=== PATIENT | male | born 1945 | race Caucasian/White ===

== ENCOUNTER 2017-12-29 10:51 | Emergency (ER) | payer MEDICARE, BC ==
[2017-12-29 11:19] VITALS: BP 116/74
--- NOTE | 2017-12-29 11:36 | UC ---
Skin Complaint HPI - HPI Summary HPI Summary: Patient is year 72 old gentleman ,who present today with a rash for past 6 days. He noticed area of redness in the right upper medial thigh on right saturday , 6 days ago. Has been running low grade fever over the week. He measured a temp of 100F at home once. Afebrile in clinic today . Today he noticed that the rash has spread to his abdominal and and chest and also down his bilateral lower extremities. Rashes in patches . Denies pain or itching. Has been in [place] daily - walk the dogs but doesn't remember being bit. No drainage. No sick contacts . Denies any new soap, detergent , cosmetics, food or a possible exposure. Denies any fever, chills, cough chest pain or shortness of breath . No diaphoresis. Denies any abdominal pain , nausea or vomiting , diarrhea or constipation. He has not tried over the counter medication so far - History of Current Complaint Chief Complaint: UCSkin Time Seen by Provider: 12/29/17 11:32 Stated Complaint: SKIN COMPLAINT Hx Obtained From: Patient Onset/Duration: Sudden Onset, Lasting Days Pain Intensity: 0 - Allergy/Home Medications Allergies/Adverse Reactions: Allergies Allergy/AdvReac Type Severity Reaction Status Date / Time Penicillins AdvReac Diarrhea Verified 12/29/17 11:16 [id number] Reductase AdvReac Nausea Verified 12/29/17 11:16 Inhibitor Home Medications: Home Medications Acetaminophen/Diphenhydramine [Tylenol Pm Ex-Strength Caplet] 1 each PO ONCE [History Confirmed 12/29/17] Review of Systems Constitutional: Fever Skin: Rash - generalized Eyes: Negative ENT: Negative Respiratory: Negative Cardiovascular: Negative Gastrointestinal: Negative Genitourinary: Negative Motor: Negative Neurovascular: Negative Musculoskeletal: Negative Neurological: Negative Psychological: Negative Is Patient Immunocompromised?: No All Other Systems Reviewed And Are Negative: Yes PMH/Surg Hx/FS Hx/Imm Hx Previously Healthy: Yes Other Endocrine History: Negative Cardiovascular History: Hypertension Other Cardiovascular History: Negative Other Respiratory History: Negative GI/ History: Other - Prostrate s/p TURP x 2 Other GI/ History: Negative Other Neurological History: Negative Other Psychological History: Negative Other Cancer History: Negative - Surgical History Surgical History: Yes Surgery Procedure, Year, and Place: TUR , 2002 - Social History Alcohol Use: None Substance Use Type: None Smoking Status (MU): Former Smoker Physical Exam - Summary Physical Exam Summary: Physical Exam: Const: Appears well. No signs of apparent distress present. Alert and oriented x 3. Musculo: Walks with a normal gait. Head/Face: Atraumatic, normocephalic on inspection. Eyes: EOMI and PERRLA in both eyes. Conjunctivae clear. ENT: Hearing normal Respiratory: Respirations are unlabored. Lungs clear to auscultation bilaterally, no wheezing , rhonchi or rales noted . CVS: Regular rate and Rhythm, S1S2 normal , no murmurs identified. Extremities: Peripheral circulation is grossly normal. Pulses 2+ Abdomen : Soft non tender , nondistended , Bowel sounds present . No guarding , rebound tenderness or rigidity noted. Skin: Left proximal thigh on has an area of erythema - no fluctuation, increased warmth or drainage. Blanches on pressure. Multiple pinkish , non raised patches noted across the abdomen , chest and bilateral lower extremities. Blanches on pressure. No scaling noted Non tender to palpate. , Neuro: Cranial nerves II to XII intact, motor and sensory intact. DTR Intact bilaterally. Mood is normal. Affect is normal. Triage Information Reviewed: Yes Appearance: Well-Appearing Vital Signs: Initial Vital Signs Temp 98.2 F 12/29/17 11:12 Pulse 92 12/29/17 11:12 Resp 16 12/29/17 11:12 BP 116/74 12/29/17 11:12 Pulse Ox 96 12/29/17 11:12 Vital Signs Reviewed: Yes Course/Dx - Course Course Of Treatment: During the visit today, we discussed the findings and further plan. This appears to be an allergic rash. I will prescribe the medication to the pharmacy . Patient expressed understanding . - Diagnoses Provider Diagnoses: Allergic dermatitis Discharge - Sign-Out/Discharge Documenting (check all that apply): Patient Departure All imaging exams completed and their final reports reviewed: No Studies - Discharge Plan Condition: Stable Disposition: HOME Prescriptions: diPHENhydraMINE PO* [Benadryl PO 50 MG CAP*] 50 mg PO TID PRN 5 Days #15 cap PRN Reason: Rash methylPREDNISolone [Medrol Dosepak 4 MG*] 0 mg PO .SEE FREDERIC INSTRUCTION 6 Days # 21 tab Patient Education Materials: Dermatitis (ED) Referrals: Bay Lovett MD [Primary Care Provider] - 2 Days Additional Instructions: Please start taking the medication as prescribed to the pharmacy . Follow up with your primary care doctor in 2 -3 days. Return to Urgent care / ER if symptoms get worse. - Billing Disposition and Condition Condition: STABLE Disposition: Home
== END 2017-12-29 11:59 | disposition home or self-care (01) ==
LOC: UCCORT 10:51
DX: L23.9 Allergic contact dermatitis, unspecified cause (principal); Z88.0 Allergy status to penicillin; Z88.8 Allergy status to other drugs, medicaments and biological substances; Z87.891 Personal history of nicotine dependence
CPT/HCPCS: 99212; G0463